=== PATIENT | female | born 1950 | race Caucasian/White ===

== ENCOUNTER 2025-02-15 10:22 | Observation (INO) ==
--- NOTE | 2025-01-30 11:37 | PAT Medication Instructions ---
Medication Instructions Date of Service January 30, 2025 Home Medications aspirin-caffeine 500 mg-32.5 mg tablet (Back and Body Pain Reliever) 2 tab PO Q6H PRN diphenhydramine HCl 25 mg capsule (Benadryl) 25 mg PO HS PRN duloxetine 30 mg capsule,delayed release 30 mg PO QAM fexofenadine 180 mg tablet 180 mg PO UD levocetirizine 5 mg tablet 5 mg PO HS lidocaine HCl 4 % topical cream (Aspercreme (lidocaine HCl)) 1 applic topical QID PRN meloxicam 15 mg tablet 15 mg PO QPM montelukast 10 mg tablet 10 mg PO HS tezepelumab-ekko 210 mg/1.91 mL (110 mg/mL) subcutaneous pen injector (Tezspire) 210 mg subcut Q28D tretinoin 1 applic topical HS ASK your surgeon for instructions aspirin-caffeine 500 mg-32.5 mg tablet (Back and Body Pain Reliever) 2 tab PO Q6H PRN meloxicam 15 mg tablet 15 mg PO QPM ASK your prescriber and surgeon tezepelumab-ekko 210 mg/1.91 mL (110 mg/mL) subcutaneous pen injector (Tezspire) 210 mg subcut Q28D STOP taking 24 hours before surgery lidocaine HCl 4 % topical cream (Aspercreme (lidocaine HCl)) 1 applic topical QID PRN tretinoin 1 applic topical HS DO NOT take the morning of surgery fexofenadine 180 mg tablet 180 mg PO UD Take morning of surgery With a small sip of water, OTHERWISE NOTHING TO EAT OR DRINK AFTER MIDNIGHT: duloxetine 30 mg capsule,delayed release 30 mg PO QAM Take evening before surgery diphenhydramine HCl 25 mg capsule (Benadryl) 25 mg PO HS PRN(if needed) levocetirizine 5 mg tablet 5 mg PO HS montelukast 10 mg tablet 10 mg PO HS Other Notes If you have any questions please call us at [phone] or [phone] or [phone] or [phone]
--- NOTE | 2025-02-01 11:25 | Anesthesiology Consultation ---
Date of Service February 01, 2025 Assessment & Plan (1) Encounter for pre-operative examination: - awaiting surgeon ordered medical clearance 02/06, Dr. Kaiser Pena. Chart Review Chart Review: Pending: Refer to Additional Notes / Consult section and Patient seen in Pre Admission Testing Teaching & Discussion Pre-Anesthesia Teaching/Discussion Notes: Instructed NPO after midnight before surgery, except medications with 15 cc of water. Medication instructions provided according to the PAT guidelines. History Surgery Operation Date: 02/15/25 07:15 Proposed Procedures p Left Reversed Total Shoulder Arthroplasty - Damon Naylor MD Height/Weight Height: 5 ft 3.5 in Weight: 76.6 kg Allergies Allergy/AdvReac Type Severity Reaction Status Date / Time Iodinated Contrast Media Allergy "felt very Verified 01/30/25 10:40 out of sorts, like body walking ahead of brain" Medications Home Medications Medication Instructions Recorded Confirmed Last Taken aspirin-caffeine 500 mg-32.5 mg 2 tab PO Q6H PRN Pain 01/30/25 01/30/25 Unknown tablet (Back and Body Pain Reliever) diphenhydramine HCl 25 mg capsule 25 mg PO HS PRN Sleep 01/30/25 01/30/25 Unknown (Benadryl) duloxetine 30 mg capsule,delayed 30 mg PO QAM 01/30/25 01/30/25 Unknown release fexofenadine 180 mg tablet 180 mg PO UD 01/30/25 01/30/25 Unknown levocetirizine 5 mg tablet 5 mg PO HS 01/30/25 01/30/25 Unknown lidocaine HCl 4 % topical cream 1 applic topical QID PRN Pain 01/30/25 01/30/25 Unknown (Aspercreme (lidocaine HCl)) meloxicam 15 mg tablet 15 mg PO QPM 01/30/25 01/30/25 Unknown montelukast 10 mg tablet 10 mg PO HS 01/30/25 01/30/25 Unknown tezepelumab-ekko 210 mg/1.91 mL 210 mg subcut Q28D 01/30/25 01/30/25 Unknown (110 mg/mL) subcutaneous pen injector (Tezspire) tretinoin 1 applic topical HS 01/30/25 01/30/25 Unknown Past Medical History Medical History Anxiety Environmental and seasonal allergies daily meds and allergy shot every 2 weeks 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 Physical Exam Vital Signs Vitals BP 161/79 P 71 TEMP 98.0 SP02 97% on RA RESP 18 Physical Patient resting comfortably in chair in no acute distress, alert and oriented, responding appropriately throughout visit Full cervical extension range of motion without pain TMD 3.5 finger breadths Mallampati Score 2 Dentition: several crowns, denies chipped or loose teeth, caps, implants or br idges Lungs: normal respiratory effort. Good air movement, clear throughout to auscultation, no adventitious breath sounds Cardiac: regular rate and rhythm, no murmurs noted Carotid arteries: negative bruit bilat Lab Results Anesthesia Preop Results Results Anesthesia Widget: WBC 5.21 K/ul (4.8-10.8) 02/01/25 Hgb 12.5 g/dl (12.0-16.0) 02/01/25 Hct 39.6 % (37.0-47.0) 02/01/25 Plt 250 K/uL (130-400) 02/01/25 Na 140 mmol/L (136-145) 02/01/25 K 4.5 mmol/L (3.5-5.1) 02/01/25 Cl 104 mmol/L (98-107) 02/01/25 CO2 29 mmol/L (21-32) 02/01/25 BUN 10 mg/dl (6-23) 02/01/25 Creat 0.93 mg/dl (0.6-1.2) 02/01/25 Glucose Level 99 mg/dl (70-99(Fasting)) 02/01/25 PT 10.1 Seconds (9.0-12.0) 02/01/25 PTT 27 Seconds (21-31) 02/01/25 INR 0.9 (0.9-1.1) 02/01/25 Urine Color Yellow 02/01/25 Urine Appearance Clear (Clear) 02/01/25 Urine pH 6.0 (4.5-7.5) 02/01/25 Urine Specific [place] 1.010 (1.000-1.030) 02/01/25 Urine Protein Negative (Negative) 02/01/25 Urine Glucose (UA) Negative (Negative) 02/01/25 Urine Ketones Negative (Negative) 02/01/25 Urine Blood Negative (Negative) 02/01/25 Urine Nitrite Negative (Negative) 02/01/25 Urine Bilirubin Negative (Negative) 02/01/25 Urine Urobilinogen Negative (Negative) 02/01/25 Urine Leukocyte Esterase Trace (Negative) H 02/01/25 Urine WBC (Auto) 0-5 /hpf (0-5) 02/01/25 Urine RBC (Auto) 0-2 /hpf (0-2) 02/01/25 Urine Hyaline Casts (Auto) 0-2 /lpf (0-2) 02/01/25 Urine Epithelial Cells (Auto) 0-2 /hpf (0-2) 02/01/25 Urine Bacteria (Auto) None Seen (None Seen) 02/01/25 Blood Type O Negative 02/01/25 Antibody Screen NEGATIVE 02/01/25 Testing Electrocardiogram Date: 02/01/25 NSR, rate 69 bpm Chest X-Ray Date: 02/01/25 There is a small hiatal hernia. Heart size and vasculature are normal. Lungs are hyperexpanded. No consolidation or pleural effusion. IMPRESSION: No acute findings.
--- NOTE | 2025-02-13 17:51 | History & Physical Report ---
Date of Service February 13, 2025 Assessment & Plan (1) Osteoarthritis of left shoulder region: Plan: End-stage glenohumeral osteoarthritis left shoulder with posterior instability chronic subluxation. Discussed with patient best option for this condition is to proceed with reverse total shoulder replacement. We did CT scan blueprint preoperative templating for custom guide fabrication. Osteoarthritis type: primary Qualified Code(s): M19.012 - Primary osteoarthritis, left shoulder History of Present Illness Chief Complaint: Chronic left shoulder pain and stiffness Primary Care Provider: NO PCP 74-year-old female with chronic left shoulder pain with substantial pain and decreased function and pain despite being on nonsteroidal anti-inflammatory medications and history of injection therapy. Patient denies headaches, sweats, fevers, chills, double vision, blurred vision, cough, sore throat, dysphagia, chest pain, sob, wheezing, n/v/d/c, numbness, tingling, fatigue, urinary symptoms, mood disorders. ROS positive for eosinophilic asthma, mild snoring, mild anxiety, some shortness of breath with activity, osteoarthritis of the spine, mild acid reflux with hiatal hernia and obesity. Allergies Allergy/AdvReac Type Severity Reaction Status Date / Time Iodinated Contrast Media Allergy "felt very Verified 01/30/25 10:40 out of sorts, like body walking ahead of brain" Home Medications Medication Instructions Recorded Confirmed Type aspirin-caffeine 500 mg-32.5 mg 2 tab PO Q6H PRN Pain 01/30/25 01/30/25 History tablet (Back and Body Pain Reliever) diphenhydramine HCl 25 mg capsule 25 mg PO HS PRN Sleep 01/30/25 01/30/25 History (Benadryl) duloxetine 30 mg capsule,delayed 30 mg PO QAM 01/30/25 01/30/25 History release fexofenadine 180 mg tablet 180 mg PO UD 01/30/25 01/30/25 History levocetirizine 5 mg tablet 5 mg PO HS 01/30/25 01/30/25 History lidocaine HCl 4 % topical cream 1 applic topical QID PRN Pain 01/30/25 01/30/25 History (Aspercreme (lidocaine HCl)) meloxicam 15 mg tablet 15 mg PO QPM 01/30/25 01/30/25 History montelukast 10 mg tablet 10 mg PO HS 01/30/25 01/30/25 History tezepelumab-ekko 210 mg/1.91 mL 210 mg subcut Q28D 01/30/25 01/30/25 History (110 mg/mL) subcutaneous pen injector (Tezspire) tretinoin 1 applic topical HS 01/30/25 01/30/25 History Past Med/Surg History Problem List (Updated 02/13/25 @ 17:49 by Damon Naylor MD) Osteoarthritis of left shoulder region Encounter for pre-operative examination Medical History Hx of thyroid nodule gets biopsies and blood work occasionally to monitor, started in 2011 Anxiety Hx of cleft palate repaired age 4 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 Mild sleep apnea no device, "only has to raise her bed" Environmental and seasonal allergies daily meds and allergy shot every 2 weeks Surgical History Hx of arthroscopy of left knee (02/02/04) lateral menicus repair 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) History of esophagogastroduodenoscopy (EGD) History of repair of congenital cleft palate age 4, used uvula to repair Social History Smoking Status: Never smoker Second Hand Exposure: Yes ("her whole life"); Do You Dip or Chew Tobacco: No; Tobacco Cessation Education Requested by Patient: No Hx Alcohol Use: No Hx Substance Use: No Preferred Language: Sinhala Communication Ability: Effective Button Sawyer Required: No Beliefs That Will Affect Care: None Current Living Situation: Spouse Other Information That Helps Us Care for You: No Feels Safe at Home: Yes Safety Concerns: Feels Safe At This Time Assistive Devices: Glasses Review of Systems All systems reviewed & are unremarkable except as noted in HPI & below Physical Exam Constitutional: WD/WN, vitals as above Respiratory: normal respiratory effort; no respiratory distress Cardiovascular: Rate/Rhythm: regular rate and regular rhythm Musculoskeletal: Some shoulder atrophy with asymmetrical posture and abnormal rhythm with glenohumeral crepitation and posterior instability of the left shoulder. Painful range of motion with 10 degrees of external rotation 45 degrees internal rotation active internal rotation to S1 with active flexion 100 degrees and further passive flexion to 120 degrees with external rotation strength 5-/5 internal rotation strength 5/5 in abduction strength 4-/5. Distal circulation sensorimotor exam intact. Skin: no rashes, warm and dry Neurologic: normal touch/pain/proprioception Psychiatric: A+Ox3, euthymic affect Results & Data Diagnostic Findings Radiographs demonstrate [id number] glenoid bone loss B2 glenoid with posterior humeral subluxation close to 60%.
[~2025-02-15 10:22] MED LIST: BUPIVACAINE 0.5 % 5 MG/1 ML PF 10ML VIAL ONE
[2025-02-15] MEDS ORDERED: MIDAZOLAM HCL 1 MG/ML 2ML VIAL ONE (10:34)
[2025-02-15] MEDS ORDERED: PROPOFOL IV EMULSION 10 MG/ML 20 ML VIAL IV ONE (10:34)
[2025-02-15] MEDS ORDERED: ROCURONIUM BROMIDE 10 MG/ML 5 ML VIAL IV ONE ×2 (10:34→15:16)
[2025-02-15] MEDS ORDERED: LIDOCAINE 2% 2 ML VIAL/AMP(20MG/ML) INFIL ONE (10:42)
[2025-02-15] MEDS: METOCLOPRAMIDE HCL 10 MG TABLET PO SCH (10:46)
[2025-02-15] MEDS: CeleBREX 200 MG CAP PO SCH (10:46)
[2025-02-15] MEDS: dexAMETHasone**PF** 10 MG/ML VIAL IV SCH (10:46)
[2025-02-15] MEDS: ACETAMINOPHEN 500 MG TAB PO SCH ×2 (10:46→18:28)
[2025-02-15] MEDS: FAMOTIDINE 20 MG TAB PO SCH (10:46)
[2025-02-15] MEDS: LR 15ML/HR IV SCH (10:47)
[2025-02-15] MEDS: GABAPENTIN 300 MG CAP PO SCH (10:47)
[2025-02-15] MEDS: LR 60ML/HR IV SCH (10:47)
--- NOTE | 2025-02-15 12:38 | History & Physical Bridge Note ---
Date of Service February 15, 2025 History & Physical Bridge Note I have examined the patient, reviewed the History & Physical and in the interval since the performance of the History & Physical I have noted the following changes of clinical significance: no changes noted
[2025-02-15] MEDS: TRANEXAMIC ACID 1,000 MG **IV Pre-op IV SCH (12:41)
[2025-02-15] MEDS ORDERED: ESMOLOL HCL INJ 10 MG/ML 10ML VIAL IV ONE (13:48)
[2025-02-15] MEDS ORDERED: SUGAMMADEX SODIUM 200 MG/2 ML VIAL IV ONE (16:26)
[2025-02-15] MEDS ORDERED: KETOROLAC TROMETHAMINE 15 MG/ML VIAL IV PRN (17:05)
[2025-02-15] MEDS ORDERED: ALUMINUM/MAGNESIUM SUSP 30 ML UDC PO PRN (17:05)
[2025-02-15] MEDS ORDERED: LIDOCAINE HCL 4% TOP PRN (17:05)
[2025-02-15] MEDS ORDERED: NALOXONE HCL 0.4 MG/1 ML VIAL/CARP IV PRN (17:05)
[2025-02-15] MEDS ORDERED: diphenhydrAMINE Capsule 25 MG CAP PO PRN (17:05)
[2025-02-15] MEDS ORDERED: MAGNESIUM HYDROXIDE SUSP 30 ML UDC PO PRN (17:05)
[2025-02-15] MEDS ORDERED: METOCLOPRAMIDE HCL INJ 5 MG/ML 2 ML VIAL IV PRN (17:05)
[2025-02-15] MEDS ORDERED: ONDANSETRON INJ 2 MG/ML 2 ML VIAL IV PRN (17:05)
[2025-02-15] MEDS ORDERED: HYDROmorphone INJ 0.5 MG/0.5 ML SYR IV PRN (17:05)
--- NOTE | 2025-02-15 17:07 | Operative Report ---
Post Operative Report Pre & Post Diagnosis Operation Date: 02/15/25 12:20 Pre-Op Diagnosis: Left Shoulder Degenerative Joint Disease, osteoarthritis, rotator cuff tendinopathy Post-Op Diagnosis: Left Shoulder Degenerative Joint Disease, osteoarthritis, rotator cuff ten dinopathy, biceps tendinopathy with tenosynovitis. I identified the patient and participated in the time-out.: Yes Procedure Operation Date: 02/15/25 12:20 Actual Procedures Left Reversed Total Shoulder Arthroplasty, biceps tenodesis.- Damon Naylor MD Surgeon Damon Naylor MD Furnace Repairer Zachary RANDHAWA Estimated Blood Loss 150 Findings Consistent with Post-Op Diagnosis Specimens Humeral head Drains 2 Hemovac Anesthesia Type General Regional Complications none Disposition Disposition: Recovery Room Indications 74-year-old female with chronic left shoulder pain with radiographic severe osteoarthritis with B2 glenoid posterior subluxation of the humerus bone loss glenoid. Description of Procedure The patient was taken to the operating room and anesthetized under regional block and general anesthetic. The patient was positioned on the operating table in a 30 beach chair position with a towel roll under the medial border of the left scapula. The arm was draped free to be able to manipulate the shoulder as needed. The left upper extremity was prepped and draped in usual sterile fashion. Exam demonstrated 5 degrees of external rotation 60 to 70 degrees of abduction, forward flexion 130 degrees, [id number] crepitation. An anterior deltopectoral approach was performed. A longitudinal incision was made in the deltopectoral interval. The skin was incised sharply. Subcutaneous flaps were elevated off the fascia. The cephalic vein was dissected out and retracted medial with the deltoid. Crossing veins were tied off with silk ties and divided the clavipectoral fascia was divided at the lateral margin of the conjoined tendon and extended up to the CA ligament. The following findings were noted: There was marked bursitis subacromial and over the subscapularis. This was resected. There was bulging rotator interval area with obvious joint effusion. There was tendinopathy the but no full-thickness tear of the rotator cuff supraspinatus tendon and the subscapularis was intact. The upper centimeter of the pectoralis was released for inferior exposure. The biceps tendon findings demonstrated large fluid collection around the biceps tendon with chronic tendinitis and thickened chronic tenosynovitis around the biceps. There was relatively thin biceps tendon. The chronic tenosynovium was resected into the bicipital groove. the biceps tendon was tenodesed to the pectoralis tendon with #2 FiberWire. The proximal biceps was resected. The subscapularis tendon was taken down off the lesser tuberosity using a subperiosteal peel technique. A #1 Vicryl traction suture was placed into the free end of the subscapularis tendon and capsule. The subscapular muscle fibers were split longitudinally at the level of the circumflex vessels. The circumflex vessels were identified and tied off with silk ties and divided laterally. A Kitner elevator was used to free up the inferior fibers of the subscapularis off of the capsule. The axillary nerve was identified with a tug test and protected with a blunt Katelin retractor between the nerve and the capsule. The subscapularis dissection was performed along the neck of the humerus as the arm is gradually actually rotated exposing the humeral head. Retractors were readjusted and the inferior osteophytes were all resected using an artist chisel. A Ortiz elevator was used to assist in releasing the capsule of the neck of the humerus. The capsule was divided with Reyna scissors down to the glenoid released off the anterior glenoid and the rotator interval was released to meet the capsular release and a 360 release of the subscapularis was accomplished. The supraspinatus tendon was released and the infraspinatus and teres minor were preserved. Some of the supraspinatus tendon tissue was resected. A Fukuda retractor was placed into the joint retracting the humeral head posterior. Glenoid findings demonstrated posterior glenoid bone loss due to chronic erosion. Humeral head was eroded with posterior humeral head bone with erosion into the subchondral bone posteriorly and eburnation anterior to that. There was chronic degenerative tearing of the labrum. The labrum and remainder of intra-articular biceps tendon was resected. an anterior-inferior and posterior inferior capsular release were performed with electrocautery and a Ortiz elevator on bone with the axillary nerve protected inferiorly by the retractor. Attention was then taken to the humeral preparation. The cutting guide was placed into the humeral head. It was positioned at 20 of retroversion. Oscillating saw was used to resect the humeral head giving the cut above the level of the posterior rotator cuff insertion site. The humerus was then prepared for the stem. I used the ascend flex stem from [employer]. The sizing broaches were used followed by trial broaches up to a size 5 the long which had the appropriate fit and fill. Was noted that the metaphyseal bone was relatively soft consistent with some osteopenia or osteoporosis. The appropriate sized cut protector was placed. The humerus was then retracted posterior to the glenoid. The glenoid was sized for a 25 mm baseplate based on preoperative CT blueprint templating. There was a custom cutting guide made.. The guide for the baseplate was positioned per the plan and the central pin was placed. The reamer for the 25 mm baseplate was used. Plan was initially for 35 degree wedge augment for the posterior wear but it did not appear as substantial as that and I chose just to use a standard flat baseplate. The reamer for the central boss was used. The depth gauge was used to measure for the central screw. The glenoid was irrigated with pulsatile saline. The 25 mm standard baseplate with a 6.5 x 30 mm central screw was screwed in position. Baseplate was screwed into position. The base plate was transfixed with superior and inferior locking screws and anterior and posterior compression screws with stable fixation. The fan reamer was used for the 39 millimeter glenoid sphere. After irrigation the 39 mm centered glenoid sphere was impacted onto the baseplate and the screw was tightened. Exposure was tight so this required removing about 3 more millimeters of bone from the humerus with an oscillating saw and rebroaching the humerus to obtain more space for placement of the glenoid component. Attention was taken back to the humerus. The cut protector was removed and the +0 high offset humeral tray trial was assembled to the trial stem rotated appropriately to get bony coverage and then screwed in position. A trial reduction was performed. A +6/39 mm flex reversed trial insert demonstrated good stability and no shuck. The trials were removed. 3 drill holes are made into the harder bone in the bicipital groove area and 3 #5 FiberWire sutures were placed transosseously. The canal was irrigated with pulsatile saline solution.. The final component was assembled. The final component was [employer] 5B Long ascend flex stem assembled 2+0 high offset tray with a 39 mm / +6 mm polyethylene flex reversed insert. This was then impacted into the humerus with a tight press-fit. It was reduced to the glenoid sphere. Stability was verified. Subscapularis was repaired with the #5 FiberWire sutures using Robert-Nicolás suture technique. Lateral row soft tissue repair was performed with #2 FiberWire [id number] sutures. The pectoralis was repaired with #2 FiberWire [id number] sutures reinforcing the biceps tendon tenodesis. The arm was taken through a range of motion which demonstrated 150 degrees of forward flexion 100 degrees of abduction 60 to 70 degrees of external rotation. The implant was stable through the range of motion tested. The wound was copiously irrigated. 2 Hemovac drains were placed. The deltopectoral interval was closed with [id number] #1 Vicryl sutures. The subcutaneous tissues were closed with 2-0 Vicryl sutures. The skin was closed with surgical jacquie. A Silverlon sterile dressing applied and a shoulder immobilizer. Zachary RANDHAWA my physician mail handler assistant assisted in the procedure to the entire procedure including patient positioning arm positioning prepping and draping soft tissue retraction instrument management suture management and performed the subcutaneous and skin closure and will participate in the postoperative care of the patient. Im ordering collagen sheets as a primary dressing and bordered super absorbent for secondary dressings for the wound resulting from this surgery. Collagen is being utilized to encourage the growth of blood vessels and granulation tissue. The collagen will also speed up the wound healing process, increase skin tensile strength at the surgery site and lessen the chance of a wound dehiscence, help prevent infection, and reduce the appearance of scarring. The silicone secondary dressings will protect the wound and help keep it clean and minimize that chances for infection. I believe that this treatment protocol is medically necessary to help facilitate the best outcome possible for my patient. I attest to the content of the Intraoperative Record and any orders documented therein. Any exceptions are noted below.
--- NOTE | 2025-02-15 17:43 | Anesthesiology Progress Note ---
Date of Service February 15, 2025 Anesthesia Post Procedure Vital Signs Vital Signs: Temp Pulse Pulse Resp BP Pulse Ox O2 Del Method 02/15/25 17:40 96 H 13 114/69 96 Room Air 02/15/25 17:30 36.5 C 98 H 16 110/70 97 Room Air 02/15/25 17:20 95 H 16 125/74 96 Room Air 02/15/25 17:10 93 H 15 119/70 97 Room Air 02/15/25 17:00 36.0 C L 96 H 18 136/76 97 Room Air 02/15/25 10:30 36.6 C 90 20 189/99 H 96 Room Air Pain Intensity Left Shoulder: Pain Intensity: 8 Transfer of Care Handoff Completed per policy Notes Mental Status: alert / awake / arousable and participated in evaluation Patient Amnestic to Procedure: Yes Nausea / Vomiting: adequately controlled Pain: adequately controlled Airway Patency, RR, SpO2: stable & adequate BP & HR: stable & adequate Hydration State: stable & adequate Anesthetic Complications: no major complications apparent and Pt Satisfied with anesthetic care
[2025-02-15] MEDS: BUPIVACAINE LIPOSOME 1.3% 133 MG/10 ML VIAL ONE (18:02)
[2025-02-15] MEDS: SODIUM CHLORIDE 0.9% 1,000 ML IV SCH (18:30)
[2025-02-15] MEDS: [UNRECOGNIZED DRUG - OTHER] SQ SCH (18:34)
--- NOTE | 2025-02-15 18:48 | XRay Report ---
COMPARISON: NONE FINDINGS: BONES: There is no acute fracture or dislocation. JOINTS: Status post left shoulder replacement without obvious complications SOFT TISSUES: Postsurgical changes in the soft tissue. IMPRESSION: No acute pathology. Satisfactory postsurgical changes. Electronically signed by Salena Valenzuela 02-15-2025 6:48 PM
--- NOTE | 2025-02-15 19:23 | Anesthesiology Progress Note ---
Date of Service February 15, 2025 Anesthesia Post Procedure Vital Signs Vital Signs: Temp Pulse Pulse Pulse Resp BP Pulse Ox 02/15/25 18:55 36.4 C L 101 H 17 116/74 96 02/15/25 18:26 36.8 C 92 H 17 108/71 95 02/15/25 17:55 36.5 C 94 H 17 107/70 98 02/15/25 17:40 96 H 13 114/69 96 02/15/25 17:30 36.5 C 98 H 16 110/70 97 02/15/25 17:20 95 H 16 125/74 96 02/15/25 17:10 93 H 15 119/70 97 02/15/25 17:00 36.0 C L 96 H 18 136/76 97 02/15/25 10:30 36.6 C 90 20 189/99 H 96 O2 Del Method 02/15/25 18:55 Room Air 02/15/25 18:26 Room Air 02/15/25 17:55 Room Air 02/15/25 17:40 Room Air 02/15/25 17:30 Room Air 02/15/25 17:20 Room Air 02/15/25 17:10 Room Air 02/15/25 17:00 Room Air 02/15/25 10:30 Room Air Pain Intensity Left Shoulder: Pain Intensity: 8 Transfer of Care Handoff Completed per policy Notes Mental Status: alert / awake / arousable Patient Amnestic to Procedure: Yes Nausea / Vomiting: adequately controlled Pain: adequately controlled Airway Patency, RR, SpO2: stable & adequate BP & HR: stable & adequate Hydration State: stable & adequate Anesthetic Complications: no major complications apparent and Pt Satisfied with anesthetic care
[2025-02-15] MEDS: CETIRIZINE HCL 10 MG TABLET PO SCH (22:10)
[2025-02-15] MEDS: SENNA 8.6 MG TAB PO SCH (22:10)
[2025-02-15] MEDS: ASPIRIN 81 MG ECTAB PO SCH (22:10)
[2025-02-15] MEDS: DOCUSATE SODIUM 100 MG CAP PO SCH (22:10)
[2025-02-15] MEDS: MONTELUKAST SODIUM 10 MG TABLET PO SCH (22:10)
[2025-02-15] MEDS: MELOXICAM 7.5 MG TAB PO SCH (22:11)
[2025-02-15] MEDS: NON-FORMULARY MEDICATION (Tretinoin 1 APPLN) TOP SCH (22:59)
[2025-02-15] MEDS: TRANEXAMIC ACID / 0.7% NACL 1,000 MG/100 ML BAG IV SCH (23:21)
--- NOTE | 2025-02-15 23:22 | Hospitalist Consultation ---
Date of Consultation February 15, 2025 Assessment & Plan (1) Osteoarthritis of left shoulder region: (2) Anxiety: (3) Mild sleep apnea: (4) Asthma: Plan Pt is a 74 yo female with a past medical hx of anxiety, asthma, mild sleep apnea without use of CPAP, and L shoulder osteoarthritis s/p total shoulder replacement on 02/15. #Anxiety - continue home duloxetine #Asthma - continue home montelukast - added albuterol prn #SLY, mild - does not use CPAP at home and does well #L shoulder arthritis s/p total replacement - procedure done on 02/15 - questions related to this issue per surgical team - per surgical team she has oxycodone po or dilaudid IV for pain along with toradol VTE ppx: per surgical team From a medical standpoint appears to be doing well post-operatively. She is quite pleasant. Feel free to contact with any questions. Supervising Physician Co-Signing Physician Notes Attending addendum: I have physically seen this patient, have supervised the medical residents activities, and agree with the H&P unless as otherwise noted. Assessment and Plan: The patient is a 74-year-old female with past medical history including anxiety, asthma, mild SLY uses CPAP, and left shoulder osteoarthritis status post total shoulder arthroplasty on 02/15 Reason for consult postoperative medical management Pain management per primary service Anxiety- Continue duloxetine Asthm- Continue montelukast Albuterol HFA 2 puffs every 6 hours as needed SLY- Mild Addressed with asthma as above, no history of CPAP use Status post left shoulder arthroplasty- Procedure 02/15 Seen postoperatively medically stable Pain management per primary team [facility] service will follow along during hospital stay History of Present Illness Reason for Consultation: Postop management Requesting Physician: Dr Damon Naylor MD Attending Physician: Damon Naylor MD History of Present Illness Pt is a 74 yo female with a past medical hx of anxiety, asthma, mild sleep apnea without use of CPAP, and L shoulder osteoarthritis s/p total shoulder replacement on 02/15. Consulted for post-op management. Pt seen at bedside post-operatively. She states she is feeling well. She ate dinner and no issues with nausea or vomiting. She declines pain at this point. No chest pain or SOB. Feeling well with no concerns at this point. Allergies Allergy/AdvReac Type Severity Reaction Status Date / Time Iodinated Contrast Media Allergy "felt very Verified 02/15/25 10:42 out of sorts, like body walking ahead of brain" Home Medications Medication Instructions Recorded Confirmed Type aspirin-caffeine 500 mg-32.5 mg 2 tab PO Q6H PRN Pain 01/30/25 02/15/25 History tablet (Back and Body Pain Reliever) diphenhydramine HCl 25 mg capsule 25 mg PO HS PRN Sleep 01/30/25 02/15/25 Hist ory (Benadryl) duloxetine 30 mg capsule,delayed 30 mg PO QAM 01/30/25 02/15/25 History release fexofenadine 180 mg tablet 180 mg PO UD 01/30/25 02/15/25 History levocetirizine 5 mg tablet 5 mg PO HS 01/30/25 02/15/25 History lidocaine HCl 4 % topical cream 1 applic topical QID PRN Pain 01/30/25 02/15/25 History (Aspercreme (lidocaine HCl)) meloxicam 15 mg tablet 15 mg PO QPM 01/30/25 02/15/25 History montelukast 10 mg tablet 10 mg PO HS 01/30/25 02/15/25 History tezepelumab-ekko 210 mg/1.91 mL 210 mg subcut Q28D 01/30/25 02/15/25 History (110 mg/mL) subcutaneous pen injector (Tezspire) tretinoin 1 applic topical HS 01/30/25 02/15/25 History acetaminophen 500 mg tablet 1,000 mg (2 x 500 mg) PO Q8H #90 02/15/25 Rx (Tylenol Extra Strength) tabs aspirin 81 mg tablet,delayed 81 mg PO BID #60 tabs 02/15/25 Rx release cefadroxil 500 mg capsule 500 mg PO Q12H #28 caps 02/15/25 Rx oxycodone 5 mg tablet 5 mg PO Q4H PRN pain #30 tabs 02/15/25 Rx Patient History Medical History Hx of thyroid nodule gets biopsies and blood work occasionally to monitor, started in 2011 Anxiety Hx of cleft palate repaired age 4 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 Mild sleep apnea no device, "only has to raise her bed" Environmental and seasonal allergies daily meds and allergy shot every 2 weeks Surgical History Hx of arthroscopy of left knee (02/02/04) lateral menicus repair 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 Physical Exam Physical Exam: General: Alert and oriented, no acute distress, quite pleasant HEENT: Normocephalic, moist oral mucosa, Cardio: Regular rate and rhythm, no murmur, Resp: Lungs clear to auscultation b/l, no wheezes or rhonchi, GI: Soft and nontender, nondistended, bowel sounds active Skin: Warm, pink, dry, Results & Data Results & Data Vital Signs (Past 12 Hours) Vital Signs Temp Pulse Pulse Pulse Resp BP Pulse Ox 02/15/25 18:55 36.4 C L 101 H 17 116/74 96 02/15/25 18:26 36.8 C 92 H 17 108/71 95 02/15/25 17:55 36.5 C 94 H 17 107/70 98 02/15/25 17:40 96 H 13 114/69 96 02/15/25 17:30 36.5 C 98 H 16 110/70 97 02/15/25 17:20 95 H 16 125/74 96 02/15/25 17:10 93 H 15 119/70 97 02/15/25 17:00 36.0 C L 96 H 18 136/76 97 02/15/25 10:30 36.6 C 90 20 189/99 H 96 O2 Del Method 02/15/25 18:55 Room Air 02/15/25 18:26 Room Air 02/15/25 17:55 Room Air 02/15/25 17:40 Room Air 02/15/25 17:30 Room Air 02/15/25 17:20 Room Air 02/15/25 17:10 Room Air 02/15/25 17:00 Room Air 02/15/25 10:30 Room Air Resident Activity Tracking Resident Involvement: Resident Care Provided Care Provided: Adult Hospital Medicine (1) Osteoarthritis of left shoulder region Osteoarthritis type: primary Qualified Code(s): M19.012 - Primary osteoarthritis, left shoulder
[2025-02-16] MEDS ORDERED: ALBUTEROL HFA 8 GM INHALER INH PRN (00:55)
[2025-02-16 03:33] VITALS: TEMP 97.9
[2025-02-16 06:18] LABS: Hematocrit (blood only) 34.3 % (37.0-47.0); Hemoglobin 10.7 g/dl (12.0-16.0); Immature Granulocytes # (auto) 0.05 K/uL (0.01-0.20); Immature Granulocytes % (auto) 0.6 %; Mean Corpuscular Hemoglobin 28.8 pg (25.0-34.0); Mean Corpuscular Volume 92.5 fL (80.0-100.0); Platelet Count 224 K/uL (130-400); RDW Standard Deviation 43.2 fL (36.4-46.3); Red Blood Count 3.71 M/uL (4.20-5.40); White Blood Count 8.78 K/ul (4.8-10.8)
[2025-02-16 06:47] LABS: Anion Gap 7.0 (3-11); Blood Urea Nitrogen 13.0 mg/dl (6-23); Calcium 8.8 mg/dl (8.6-10.3); Carbon Dioxide 24.0 mmol/L (21-32); Chloride 108.0 mmol/L (98-107); Creatinine Clr Calc Pharmacy 61.1 ml/min; Glucose 134.0 mg/dl (70-99(Fasting)); Potassium 4.4 mmol/L (3.5-5.1); Sodium 139.0 mmol/L (136-145)
[2025-02-16 07:45] VITALS: BP 121/74; PULSE 85; RESP 18; O2SAT 95
--- NOTE | 2025-02-16 08:10 | Orthopedic Progress Note ---
Date of Service February 16, 2025 Assessment & Plan (1) Osteoarthritis of left shoulder region: Plan: Postop day 1 reverse total shoulder replacement biceps tenodesis. Patient stable for discharge home today. She is going to do outpatient physical therapy at [facility] in [place]. She can start that next week. Discussed activity precautions. Nerve block can last sometimes up to 3 days so she will be in touch if there is any issues. Follow-up in 2 weeks for staple removal. End-stage glenohumeral osteoarthritis left shoulder with posterior instability chronic subluxation. Discussed with patient best option for this condition is to proceed with reverse total shoulder replacement. We did CT scan blueprint preoperative templating for custom guide fabrication. Admission and Anticipated Discharge Date Admission Date: February 15, 2025 Subjective No pain. Still under effects of nerve block Review of Systems Review of Systems: Feels well no chest pain shortness of breath ,medical issues. Physical Exam Musculoskeletal: Sling adjusted appropriately. Dressing intact. Patient can flex wrist and fingers but no extension function yet and still numb from nerve block with still motor weakness from nerve block. Circulation normal. Results & Data Vital Signs (Past 12 Hours) Vital Signs Temp Pulse Resp BP Pulse Ox O2 Del Method 02/16/25 07:43 36.6 C 85 18 121/74 95 Room Air 02/16/25 06:04 36.6 C 81 16 123/81 96 Room Air 02/16/25 02:00 36.6 C 87 16 123/81 95 Room Air Diagnostic Findings Well aligned reverse total shoulder replacement left shoulder. (1) Osteoarthritis of left shoulder region Osteoarthritis type: primary Qualified Code(s): M19.012 - Primary osteoarthritis, left shoulder
[2025-02-16] MEDS: FEXOFENADINE HCL 180 MG TAB PO SCH (09:56)
[2025-02-16] MEDS: MULTIVITAMIN TAB PO SCH (09:56)
[2025-02-16] MEDS: dexAMETHasone 10 MG in SYRINGE 0 ML IV SCH (09:56)
--- NOTE | 2025-02-17 05:32 | Billing Data ---
Date of Service February 17, 2025 Coding Level of Care Code 33491 IN/OBS CONSULT LVL 3,45M
== END 2025-02-16 14:27 | disposition home or self-care (01) ==
LOC: ASU 10:22 → 3E 10:22